=== PATIENT | male | born 1960 | race Caucasian/White ===

== ENCOUNTER 2018-04-26 11:50 | Emergency (ER) | payer BC ==
[~2018-04-26] VITALS: Ht 185.4 cm; Wt 74.0 kg
[~2018-04-26 11:50] MED LIST: ASPEC81 PO; ATV/1 PO; CMD5 PO; SIMV20TA2 PO; TYLOTC500 PO
[2018-04-26 11:56] VITALS: Ht 185.4 cm; Wt 74.0 kg
[2018-04-26] MEDS ORDERED: WARF5TAB7 PO (12:06)
[2018-04-26] MEDS ORDERED: LAMO150T PO (12:06)
[2018-04-26] MEDS ORDERED: ASPI81TA28 PO (12:06)
[2018-04-26] MEDS ORDERED: ONDANSETRON INJ 2 MG/ML 2 ML VIAL IV STA (12:07)
[2018-04-26] MEDS ORDERED: CEFAZOLIN SOD 1000MG/7.5 ML IV PUSH IV STA (12:07)
[2018-04-26] MEDS ORDERED: MoRPHine SULFATE 4 MG/ML 1 ML CARP\\VIAL IV STA ×2 (12:07→13:39)
[2018-04-26] MEDS ORDERED: SODIUM CHLORIDE 0.9% 1000ML 1,000 ML IV ONE (12:15)
--- NOTE | 2018-04-26 12:50 | DIAGNOSTIC IMAGING REPORT ---
L HAND MIN 3 VIEWS ROUTINE CLINICAL HISTORY: L table saw accident trauma COMPARISON: None. DISCUSSION: Evidence for soft tissue and bone lacerations involving the distal phalanges of the second third and fourth fingers. There is focal loss of cortical bone base of the distal phalanx second finger. There is considerable loss of cortical bone involving the mid aspect of the distal phalanx of the third finger. There is a soft tissue disruption and focal cortical bone loss tuft distal phalanx fourth finger. No evidence for dislocation. IMPRESSION: 1. Soft tissue disruption combine with bone laceration and substance loss of the distal phalanx of the third finger, and to a lesser extent base distal phalanx second finger and to a left distal phalanx fourth finger. 2. Soft tissue edematous change. 3. No additional acute abnormality. The above report was generated using voice recognition software. It may contain grammatical, syntax or spelling errors. Electronically signed by: Cyrus Abbasi M.D. 04/26/2018 12:48 PM Dictated Date/Time: 04/26/2018 12:46 PM
[2018-04-26] MEDS ORDERED: OXYC-737 PO (14:11)
[2018-04-26] MEDS ORDERED: CEPH500C2 PO (14:11)
[2018-04-26 14:48] VITALS: BP 116/69; PULSE 75; O2SAT 98
[2018-04-26 15:28] LABS: INR 2.4 (0.9-1.1); PTT PATIENT 32.1 SECONDS (21.0-31.0)
--- NOTE | 2018-04-26 17:10 | EMERGENCY ROOM VISIT NOTE ---
ED Visit Note First contact with patient: 12:01 Chief Complaint: I cut my left hand. History of Present Illness: Mr. Monge is a 58-year-old white male who ambulates accompanied by female friend complaining of lacerations on the left fingers. Patient reports less than 1 hour ago he was using a table saw at home and cut his left index, middle and ring fingers. He reports he attempted to control bleeding with direct pressure but did not wash his wounds. Associated with his lacerations he is complaining of a throbbing sensation through the injured fingers. He rates his discomfort 5/10. His pain is nonradiating. His pain worsens with palpation of the lacerations. He has not identified any alleviating factors related to the pain. He has not taken any medications for pain prior to arrival at the hospital. Associated with his pain he does report he cannot feel the distal aspect of the distal phalanx the middle finger. Patient denies any previous significant injuries, other hand numbness/tingling, hand weakness, wrist pain, forearm pain. Review of Systems: As noted above in history of present illness. Past Medical History: Stroke, Trinidad's palsy, heart disease, status post pacemaker implantation Current Medications: Medications Dose Route/Sig Max Daily Dose Days Date Category Roxicodone Ir (Oxycodone HCl) 5 Mg Tab 1-2 Tab PO Q6 PRN 04/26/18 Rx Keflex (Cephalexin Monohydrate) 500 Mg Cap 500 Mg PO QID 10 04/26/18 Rx Lamictal (Lamotrigine) 150 Mg Tab 150 Mg PO DAILY 04/26/18 Reported Aspirin Ec (Aspirin) 81 Mg Tab 81 Mg PO DAILY 04/26/18 Reported Jantoven (Warfarin Sodium) 5 Mg Tab 5 Mg PO DAILY 04/26/18 Reported Zocor (Simvastatin) 20 Mg Tab 20 Mg PO QPM 08/07/10 Reported Allergies to Medications: Codeine. Social History: Patient is currently employed; he feels safe in his home environment; he admits to tobacco use but denies alcohol use. Tetanus Immunization Status: Patient reports up-to-date Physical Examination: Vital Signs: Date Time Temp Pulse Resp B/P (MAP) Pulse Ox O2 Delivery O2 Flow Rate FiO2 04/26/18 14:48 75 20 116/69 98 04/26/18 13:45 84 20 110/76 96 Room Air 04/26/18 11:56 62 20 81/61 93 Room Air GENERAL: 58-year-old male in moderate distress due to pain, nontoxic-appearing, afebrile and hemodynamically stable. NEUROLOGICAL: Awake, alert and oriented to person, place and time. Answering questions appropriately and following commands. Normal gait. SKIN: Warm, dry and pink. Left Hand: Lacerations to 3 fingers: Index Finger: Approximately 1.5 cm over the lateral aspect of the fingernail starting at the level of the hyponychium extends anteriorly dorsally into the palmar aspect of the finger. This appears full-thickness and there is no active bleeding. Middle Finger approximately 4 cm once again starting laterally at the level of the midportion of the nailbed and extended dorsally and palmarly slightly more prominently toward the palmar aspect. There is obvious deformity in this area at the distal phalange; this is an obvious open fracture. Ring finger: Shows a laceration at the level of level of the base of the nail just proximal to the cuticle. It is also full-thickness and measures approximately 3.5 cm. No active bleeding. LEFT HAND: Soft tissue injury as noted above. No other hand or finger soft tissues were noted. Patient had full range of motion in flexion and extension of all MCP, PIP and DIP joints. The middle finger was an open fracture but he still had movement at the DIP joint movement. He was not able to distinguish any sensations over the distal aspect of the middle finger but was able to sensate all other fingers. The fingers were warm and pink and capillary refill was brisk. ED Course: Patient is assessed as noted above. Patient's medication list was reviewed. Laboratory Testing: Test 04/26/18 12:10 Range/Units Prothrombin Time 24.6 9.0-12.0 SECONDS Prothromb Time International Ratio 2.4 0.9-1.1 Activated Partial Thromboplast Time 32.1 21.0-31.0 SECONDS Partial Thromboplastin Ratio 1.2 An IV lock was initiated and patient received a total of 8 mg of morphine IV for pain and 1 g of Ancef for IV coverage. Patient's case was consulted with orthopedics and he was evaluated by Henrik Grant PA-C. He recommended that we clean out the wound as best as possible , and immobilized the patient's fingers and have him be sent directly over to [facility] to see the orthopedic surgeon on duty for definitive care and treatment. These procedures were performed and patient was placed in an Ortho-Glass splint. Patient was educated about today's findings and instructed on his treatment plan ; he verbalized understanding and agreement with this plan. Clinical Impression: Open fractures to the distal phalanxes of the left ring, middle and index finger. Disposition: Patient discharged from the ED to go directly to the orthopedic surgeons for definitive care and treatment. Plan: Comfort measures were discussed with the patient including the use of OxyIR for pain control; he was given appropriate narcotic precautions and his name was checked on state database and no red flags are noted. Additionally patient was started on Keflex 500 mg 4 times a day for 7 days for antibiotic coverage. Patient was encouraged return the ED for any signs of infection and to continue with the treatment plan prescribed by orthopedic specialty.
== END 2018-04-26 14:48 | disposition home or self-care (01) ==
LOC: C.EDB 11:51 → C.EDC 14:48
DX: S62.631A Displaced fracture of distal phalanx of left index finger, initial encounter for closed fracture (principal); S62.633A Displaced fracture of distal phalanx of left middle finger, initial encounter for closed fracture; S63.635A Sprain of interphalangeal joint of left ring finger, initial encounter; W31.2XXA Contact with powered woodworking and forming machines, initial encounter; I51.9 Heart disease, unspecified; Z72.0 Tobacco use; Z79.82 Long term (current) use of aspirin; Z79.01 Long term (current) use of anticoagulants; Z86.73 Personal history of transient ischemic attack (TIA), and cerebral infarction without residual deficits; Z79.899 Other long term (current) drug therapy; Z88.6 Allergy status to analgesic agent

== ENCOUNTER → 2018-04-27 | Outpatient (CLI) | payer BC ==
[~2018-04-27] MED LIST changes: -ASPEC81 PO; +ASPI81TA28 PO; -ATV/1 PO; +CEPH500C2 PO; -CMD5 PO; +LAMO150T PO; +OXYC-737 PO; +RXC5 PO; -TYLOTC500 PO; +WARF5TAB7 PO
[2018-04-27 16:12] LABS: BASO % 0.3 %; BASO ABS # 0.03 K/uL (0-0.2); EOS % 1.5 %; EOS ABS # 0.14 K/uL (0-0.5); HEMATOCRIT 37.4 % (42-52); HEMOGLOBIN 12.7 g/dL (14.0-18.0); IG# 0.02 K/uL (0.00-0.02); LYMPH % 18.3 %; LYMPH ABS # 1.76 K/uL (1.2-3.4); MEAN CORPUSCULAR HEMOGLOBIN 31.6 pg (25-34); MEAN PLATELET VOLUME 9.9 fL (7.4-10.4); MONO % 7.3 %; NEUT % 72.4 %; NEUT ABS # 6.98 K/uL (1.4-6.5); PLATELET COUNT 200 K/uL (130-400); RED CELL DISTRIBUTION WIDTH CV 14.1 % (11.5-14.5); RED CELL DISTRIBUTION WIDTH SD 48.3 fL (36.4-46.3); WHITE BLOOD COUNT 9.63 K/uL (4.8-10.8)
[2018-04-27 16:19] LABS: BLOOD UREA NITROGEN 16 mg/dl (7-18); CALCIUM 8.4 mg/dl (8.5-10.1); CARBON DIOXIDE 26 mmol/L (21-32); GLUCOSE 78 mg/dl (70-99); SODIUM 137 mmol/L (136-145)
[2018-04-27 16:27] LABS: INR 2.6 (0.9-1.1); PTT PATIENT 37.2 SECONDS (21.0-31.0)
--- NOTE | 2018-04-27 18:17 | DIAGNOSTIC IMAGING REPORT ---
CHEST 2 VIEWS ROUTINE HISTORY: 58 years-old Male PAT preoperative exam. No acute chest complaints. COMPARISON: Chest radiograph 11/26/2008 TECHNIQUE: PA and lateral views of the chest FINDINGS: Cardiomediastinal and hilar silhouettes are within normal limits. Left subclavian pacer is noted with leads appearing to be intact. There is no pneumothorax, pleural effusion, focal airspace consolidation or overt pulmonary edema. Hyperinflated lungs with blunting of the costophrenic angles. Increased lucency of the lungs suggests emphysema. Bones of the chest appear grossly intact. IMPRESSION: Hyperinflation and possible emphysema without acute process. The above report was generated using voice recognition software. It may contain grammatical, syntax or spelling errors. Electronically signed by: Carroll Isbell M.D. 04/27/2018 6:16 PM Dictated Date/Time: 04/27/2018 6:14 PM
== END | disposition home or self-care (01) ==
LOC: C.CPL 07:09 → C.PAT 08:57
DX: Z01.818 Encounter for other preprocedural examination (principal); Z01.810 Encounter for preprocedural cardiovascular examination; Z01.812 Encounter for preprocedural laboratory examination

== ENCOUNTER 2018-04-29 10:43 | Day surgery (SDC) | payer BC ==
--- NOTE | 2018-04-27 15:42 | PAT Medication Instructions ---
Service Date Apr 27, 2018. Current Home Medication List Aspirin (Aspirin Ec), 81 MG PO QAM Cephalexin Monohydrate (Keflex), 500 MG PO QID Lamotrigine (Lamictal), 150 MG PO QAM Oxycodone Immediate Rel Tab (Roxicodone Ir), 1-2 TAB PO Q6 PRN for Severe Pain Simvastatin (Zocor), 20 MG PO QAM Warfarin Sod (Jantoven), 5 MG PO DAILY Medication Instructions For Your Scheduled Surgery -Check with surgeon for instructions. If instructed to STOP, check with prescriber: Warfarin Sod (Jantoven), 5 MG PO DAILY - Take the following medications the morning of surgery with a sip of water: Aspirin (Aspirin Ec), 81 MG PO QAM (unless otherwise instructed by surgeon) Cephalexin Monohydrate (Keflex), 500 MG PO QID Lamotrigine (Lamictal), 150 MG PO QAM Oxycodone Immediate Rel Tab (Roxicodone Ir), 1-2 TAB PO Q6 PRN for Severe Pain ( if needed, may be taken up to four hours before surgery) Simvastatin (Zocor), 20 MG PO QAM - Take the following medications as scheduled the night before surgery: Cephalexin Monohydrate (Keflex), 500 MG PO QID Oxycodone Immediate Rel Tab (Roxicodone Ir), 1-2 TAB PO Q6 PRN for Severe Pain ( if needed) If you have any questions please call us at [phone] or [phone] or [phone]
--- NOTE | 2018-04-28 10:09 | HISTORY & PHYSICAL EXAMINATION ---
DATE OF ADMISSION: 04/29/2018 NOTICE TO RECEIVING GREEN PARTY/AGENCY This information is strictly Confidential and protected under [place] law. [place] law prohibits you from making any further disclosure of this information unless further disclosure is expressly permitted by the written consent of the person to whom it pertains or is authorized by law. A general authorization for the release of medical or other information is not sufficient for this purpose. Hospital accepts no responsibility if the information is made available to any other person, INCLUDING THE PATIENT. CHIEF COMPLAINT: Left hand second, third and fourth finger lacerations. HISTORY OF PRESENT ILLNESS: The patient is 58-year-old male injured his left hand on 04/26/2018 during a table saw accident. He was seen at [facility] ED for evaluation. X-rays revealed open fractures to the index, middle, and ring fingers. The patient was seen by NASIR Romero in the ED. The wounds were dressed and the patient referred to Dr. Call for further definitive orthopedic care. He is now scheduled for a left hand index finger and ring finger I&D and wound closure and left middle finger revision amputation. PAST MEDICAL HISTORY: Coronary artery disease with cardiac pacemaker, second degree AV block, seizure disorder, patent foramen ovale, history of CVA, hyperlipidemia, depression. PAST SURGICAL HISTORY: Unknown at this time. MEDICATIONS: Lamictal 150 mg twice daily, Lipitor 20 mg daily, Coumadin 5 mg daily, trazodone 50 mg at bedtime p.r.n., aspirin 81 mg daily. ALLERGIES: CODEINE. SOCIAL HISTORY: He has a [id number] smoking history. REVIEW OF SYSTEMS: Noncontributory. PHYSICAL EXAMINATION: GENERAL: Well-nourished, well-developed elderly male who appears stated age. HEENT: Normocephalic, atraumatic, extraocular movements intact, oropharynx pink and moist. NECK: Supple without adenopathy. LUNGS: Clear to auscultation bilaterally. HEART: Regular rate and rhythm. ABDOMEN: Soft, nontender, nondistended. EXTREMITIES: Left hand demonstrates wound to the tips of the second, third and fourth fingers; the middle finger being the most severe. X-rays reviewed. He has a wound to the base of the distal phalanx of the index finger, ulnar border, he has a transverse injury to the distal phalanx of the middle finger. This completely traverses the entire distal phalanx. He also has a small wound to the distal tip of the distal phalanx of the fourth finger. ASSESSMENT: Left hand second, third and fourth finger open fractures with open wounds secondary to table saw injury. PLAN: The above discussed with the patient. His primary care physician is Dr. Beck. Due to his significant medical history he is scheduled for a left index finger and ring finger I&D and wound closure and left middle finger revision amputation to be performed at the hospital in the near future.
[~2018-04-29] VITALS: Ht 185.4 cm; Wt 70.4 kg
[~2018-04-29 10:43] MED LIST changes: +ATROPINE SULFATE 0.1 MG/ML 5ML SYR IV PRN; +CEFAZOLIN 1000MG IV PUSH 7.5 ML IV SCH; +EpHEDrine SULFATE INJ 50 MG/ML AMP IV PRN; +LACTATED RINGER'S 1000ML 1,000 ML IV SCH; +ONDANSETRON INJ 2 MG/ML 2 ML VIAL IV PRN; -RXC5 PO
--- NOTE | 2018-04-29 11:02 | History & Physical Bridge Note ---
H&P Re-Evaluation Bridge Note: I have examined the patient, reviewed the History & Physical and in the interval since the performance of the History & Physical I have noted the following changes of clinical significance: No changes noted
[2018-04-29 11:11] VITALS: BP 137/83; PULSE 75; TEMP 36.7; O2SAT 96; Ht 185.4 cm; Wt 70.4 kg
[2018-04-29 11:57] LABS: INR 2.3 (0.9-1.1); PTT PATIENT 36.5 SECONDS (21.0-31.0)
[2018-04-29] MEDS ORDERED: BACITRACIN 50000 UNIT VIAL ONE ×2 (12:30→13:19)
[2018-04-29] MEDS ORDERED: LIDOCAINE HCL 2% 2 ML VIAL (20MG/ML) ONE (12:30)
[2018-04-29] MEDS ORDERED: FENTANYL CITRATE INJ 50 MCG/1 ML 2 ML VIAL ONE ×2 (12:30→14:18)
[2018-04-29] MEDS ORDERED: MIDAZOLAM HCL 1 MG/ML 2ML VIAL ONE (12:30)
[2018-04-29] MEDS ORDERED: PROPOFOL IV EMULSION 10 MG/ML 20 ML VIAL ONE (12:30)
--- NOTE | 2018-04-29 13:37 | [facility] Post Operative Brief Note ---
Immediate Operative Summary Operative Date Apr 29, 2018. Pre-Operative Diagnosis Left hand second, third and fourth finger open fractures with open wounds secondary to table saw injury Post-Operative Diagnosis Left hand second, third and fourth finger open fractures with open wounds secondary to table saw injury Procedure(s) Performed Left Index Finger and Left Ring Finger Incision, & Left Middle Finger Incision & drainage & repair of laceration Surgeon Dr. Josey Call Creative Lead Surgeon(s) Johanne Fay PA-C Estimated Blood Loss 5mL Findings Consistent with Post-Op Diagnosis Specimens none per surgeon Anesthesia Type General Complication(s) none Disposition Accompanied Pt To Recover: no Disposition: Recovery Room / PACU Overlapping Procedure I was present for: the critical portions of procedure. I was immediately available: during the entire case
[2018-04-29] MEDS ORDERED: SODIUM CHLORIDE 0.9% 1000ML 1,000 ML IV SCH (13:56)
[2018-04-29] MEDS ORDERED: OXYC-737 PO (13:59)
[2018-04-29] MEDS ORDERED: OXYCODONE/ACETAMINOPHEN 5-325 TAB PO PRN ×2 (14:00)
--- NOTE | 2018-04-29 14:02 | Discharge Instructions ---
Discharge Instructions Date of Service Apr 29, 2018. Visit Reason for Visit: Left Hand 2ND, 3RD, & 4TH Fingers Laceration Discharge Discharge Diagnosis / Problem: Left hand 2nd, 3rd, and 4th fingers lacerations Discharge Goals Goal(s): Decrease discomfort, Improve function Activity Recommendations Activity Limitations: as noted below Anesthesia . Post Anesthesia Instructions: If you have had General Anesthesia or IV Sedation: * Do not drive today. * Resume driving when surgeon permits. * Do not make important decisions or sign legal documents today. * Call surgeon for: 1. Temperature elevations greater than 101 degrees F. 2. Uncontrollable pain. 3. Excessive bleeding. 4. Persistent nausea and vomiting. 5. Medication intolerance (nausea, vomiting or rash). * For nausea and vomiting use only clear liquids such as: tea, soda, bouillon until nausea subsides, then gradually increase diet as tolerated. * If you have any concerns or questions, call your surgeon's office. If physician is unavailable and it is an emergency, call 911 or go to the nearest emergency room. . Instructions / Follow-Up Instructions / Follow-Up Leave dressings in place until follow-up with MD. Frequent elevation. Follow- up with Dr Call for dressing change 05/03/18. Call [phone] for appt Diet Recommendations Recommended Home Diet: resume previous diet Procedures Procedures Performed: Left Index Finger and Left Ring Finger Incision, & Left Middle Finger Incision & drainage & repair of laceration Pending Studies Studies pending at discharge: no Medical Emergencies . Who to Call and When: Medical Emergencies: If at any time you feel your situation is an emergency, please call 911 immediately. . Non-Emergent Contact Non-Emergency issues call your: Surgeon Call Non-Emergent contact if: temperature is above 101.5, your pain is not controlled, wound has increased drainage, wound has increased redness . . "Provider Documentation" section prepared by Tru Fay PA-C. . [place] Drug Monitoring Program Search Results: patient reviewed within database, no issues identified
[2018-04-29] MEDS ORDERED: RXC5 PO (14:03)
[2018-04-29] MEDS ORDERED: FENTANYL CITRATE INJ 50 MCG/1 ML 2 ML VIAL IV PRN (14:30)
--- NOTE | 2018-04-29 14:42 | Anesthesiology Progress Note ---
Anesthesia Post Op Note Date & Time Apr 29, 2018 at 14:42 Vital Signs Pain Intensity: 5 Vital Signs Past 12 Hours Date Time Temp Pulse Resp B/P (MAP) Pulse Ox O2 Delivery O2 Flow Rate FiO2 04/29/18 14:35 36.3 62 16 119/77 95 Room Air 04/29/18 14:25 62 16 134/81 96 Room Air 04/29/18 14:15 69 16 133/81 100 Oxymask 3 04/29/18 14:05 66 16 137/83 100 Oxymask 3 04/29/18 13:56 36.4 72 18 136/83 100 Oxymask 5 04/29/18 11:11 36.7 75 18 137/83 (101) 96 Room Air Notes Mental Status: alert / awake / arousable, participated in evaluation Pt Amnestic to Procedure: Yes Nausea / Vomiting: adequately controlled Pain: adequately controlled Airway Patency, RR, SpO2: stable & adequate BP & HR: stable & adequate Hydration State: stable & adequate Anesthetic Complications: no major complications apparent
[2018-04-29 14:48] VITALS: BP 140/74; PULSE 71; TEMP 36.4; O2SAT 96
--- NOTE | 2018-04-29 15:08 | OPERATIVE REPORT ---
REVISED REPORT DATE OF OPERATION: 04/29/2018 PREOPERATIVE DIAGNOSIS: Lacerations, fingertips second, third and fourth finger, left hand. POSTOPERATIVE DIAGNOSIS: Lacerations, fingertips second, third and fourth finger, left hand. PROCEDURE: Irrigation and debridement and repair of lacerations, third, fourth and fifth finger, left hand. SURGEON: James Call MD ANESTHESIA: General. CIRCULAR CLERK: Tru Fay PA-C COMPLICATIONS: None. Mr. Fay was essential in all portions of the procedure including prepping, draping, positioning of the patient, rn surgical, wound closure and dressing application. DESCRIPTION OF PROCEDURE: The patient's left hand was prepped and draped in usual sterile manner. Limb was exsanguinated with an Esmarch bandage and tourniquet was inflated to 250 mmHg. First, a clot was removed manually and there was found to be no purulence. The cascade of the fingers indicated that there was likely an absence of the profundus to the index finger. The third finger which at the largest laceration, the fingertip was viable and the decision was made to repair rather than complete the amputation. The wounds were irrigated thoroughly with pulse irrigation and closed using 4-0 nylon simple suture. The decision to avoid going after the profundus tendon to the index finger was made in order to avoid contamination to the flexor tendon sheath and risk a flexor tenosynovitis. The patient was dressed, awakened, and taken to recovery in stable and good condition. He tolerated the procedure well. I attest to the content of the Intraoperative Record and any orders documented therein. Any exceptions are noted below. ADDENDUM: The index finger wound length was 1 cm, third finger wound length was 1.5 cm with a depth of 1 cm, fourth finger wound length was 1 cm. [facility]
[2018-04-29 15:20] VITALS: BP 130/73; PULSE 68; TEMP 36.4; O2SAT 95
== END 2018-04-29 15:32 | disposition home or self-care (01) ==
LOC: C.ACU 10:43
DX: S61.211A Laceration without foreign body of left index finger without damage to nail, initial encounter (principal); S61.213A Laceration without foreign body of left middle finger without damage to nail, initial encounter; S61.215A Laceration without foreign body of left ring finger without damage to nail, initial encounter; W29.8XXA Contact with other powered hand tools and household machinery, initial encounter